=== PATIENT | female | born 1980 | race Two or more races ===

== ENCOUNTER 2016-10-12 15:38 | Emergency (ER) | payer BC ==
[2016-10-12] MEDS ORDERED: NORMAL SALINE 1000 ML 1,000 ML IV PRN (16:16)
[2016-10-12] MEDS ORDERED: ONDANSETRON HCL INJ/PF 4 MG/2 ML SDV IV ONE (16:16)
--- NOTE | 2016-10-12 16:18 | ER Document Report ---
ED Medical Screen (RME) - General Chief Complaint: Abdominal Pain Stated Complaint: ABDOMINAL & BACK PAIN Time Seen by Provider: 10/12/16 16:15 Mode of Arrival: Ambulatory Information source: Patient Notes: This is a 36-year-old female s/p Orbera balloon placement 4 days ago (Dr. Zurita ) who presents to the emergency room with persistent nausea, vomiting, pressure in the abdomen. The patient states she is unable to sleep at night because of the pressure. She states she has been miserable. She denies any fever, chills. TRAVEL OUTSIDE OF THE [place] IN LAST 30 DAYS: No - Related Data Allergies/Adverse Reactions: No Known Allergies Allergy (Unverified 10/12/16 15:45) Past Medical History - Social History Chew tobacco use (# tins/day): No Renal/ Medical History: Denies: Hx Peritoneal Dialysis Past Surgical History: Reports: Hx Tonsillectomy - Immunizations Hx Diphtheria, Pertussis, Tetanus Vaccination: No Physical Exam - Vital signs Vitals: Temp Pulse Resp BP Pulse Ox 97.4 F 85 14 110/65 98 10/12/16 15:42 10/12/16 15:42 10/12/16 15:42 10/12/16 15:42 10/12/16 15:42 Course - Vital Signs Vital signs: Temp Pulse Resp BP Pulse Ox 97.4 F 85 12 110/65 98 10/12/16 15:42 10/12/16 15:42 10/12/16 16:10 10/12/16 15:42 10/12/16 15:42
[2016-10-12 17:10] LABS: ABSOLUTE BASOPHILS # (AUTO) 0.1 10^3/uL (0.0-0.2); ABSOLUTE EOSINOPHILS # (AUTO) 0.3 10^3/uL (0.0-0.6); ABSOLUTE LYMPHOCYTES (AUTO) 2.2 10^3/uL (0.5-4.7); ABSOLUTE MONOCYTES (AUTO) 0.8 10^3/uL (0.1-1.4); ABSOLUTE NEUT (AUTO) 6.8 10^3/uL (1.7-8.2); BASOPHILS % (AUTO) 0.7 % (0-2); EOSINOPHILS % (AUTO) 3.4 % (0-6); HEMATOCRIT 33.6 % (36.0-47.0); HEMOGLOBIN 10.8 g/dL (12.0-15.5); HGB HCT DIFFERENCE -1.2; LYMPHOCYTES % (AUTO) 21.3 % (13-45); MEAN CORPUSCULAR HEMOGLOBIN 22.3 pg (27.0-33.4); MEAN CORPUSCULAR HGB CONC 32.2 g/dL (32.0-36.0); MEAN CORPUSCULAR VOLUME 69 fl (80-97); RED BLOOD COUNT 4.84 10^6/uL (3.72-5.28); RED CELL DISTRIBUTION WIDTH 17.9 % (11.5-14.0); SEGMENTED NEUTROPHILS % (AUTO) 66.6 % (42-78); WHITE BLOOD COUNT 10.2 10^3/uL (4.0-10.5)
[2016-10-12 17:31] LABS: ALANINE AMINOTRANSFERASE 67 U/L (9-52); ALBUMIN 4.8 g/dL (3.5-5.0); ALKALINE PHOSPHATASE 114 U/L (38-126); ANION GAP 14 (5-19); ASPARTATE AMINO TRANSFERASE 33 U/L (14-36); BILIRUBIN,DIRECT 0.3 mg/dL (0.0-0.4); BILIRUBIN,TOTAL 0.6 mg/dL (0.2-1.3); BLOOD UREA NITROGEN 12 mg/dL (7-20); CALCIUM 10.2 mg/dL (8.4-10.2); CARBON DIOXIDE 27 mmol/L (22-30); CHLORIDE 100 mmol/L (98-107); GLUCOSE 111 mg/dL (75-110); LIPASE 291.9 U/L (23-300); POTASSIUM 4.5 mmol/L (3.6-5.0); SODIUM 140.7 mmol/L (137-145); TOTAL PROTEIN 8.7 g/dL (6.3-8.2)
--- NOTE | 2016-10-12 17:35 | ER Document Report ---
ED GI/ - General Mode of Arrival: Ambulatory Information source: Patient TRAVEL OUTSIDE OF THE [place] IN LAST 30 DAYS: No <BLAISE GONZALEZ - Last Filed: 10/12/16 19:13> <CYRUSJOEYELSA - Last Filed: 10/12/16 20:15> - General Chief Complaint: Abdominal Pain Stated Complaint: ABDOMINAL & BACK PAIN Time Seen by Provider: 10/12/16 16:15 Notes: 36-year-old DM2, dpression, anxiety female who lives alone had a Orbera gastric balloon placed on Saturday by dr. doyle. She is c/o abdominal pressure on her bladder, kidneys, back when she is supine, and bilateral upper abdomen. No vomiting today since she has scapalomine patch and zofran. eating small piece of watermelon and some onion soup today. Normal BM yesterday. She states all the symptoms are due to the balloon procedure and she wants it out, but has not asked dr. doyle to remove it. (BLAISE GONZALEZ) - Related Data Allergies/Adverse Reactions: No Known Allergies Allergy (Unverified 10/12/16 15:45) Past Medical History - General Information source: Patient - Social History Smoking Status: Never Smoker Chew tobacco use (# tins/day): No Frequency of alcohol use: None Drug Abuse: None Lives with: Family Family History: Reviewed & Not Pertinent - Medical History Medical History: Negative Renal/ Medical History: Denies: Hx Peritoneal Dialysis Past Surgical History: Reports: Hx Tonsillectomy - Immunizations Hx Diphtheria, Pertussis, Tetanus Vaccination: No <BLAISE GONZALEZ - Last Filed: 10/12/16 19:13> Review of Systems - Review of Systems Constitutional: No symptoms reported EENT: No symptoms reported Cardiovascular: No symptoms reported Respiratory: No symptoms reported Gastrointestinal: See HPI Genitourinary: No symptoms reported Female Genitourinary: No symptoms reported Musculoskeletal: No symptoms reported Skin: No symptoms reported Hematologic/Lymphatic: No symptoms reported Neurological/Psychological: No symptoms reported <BLAISE GONZALEZ - Last Filed: 10/12/16 19:13> Physical Exam - Vital signs Interpretation: Normal - General General appearance: Alert, Anxious - HEENT Head: Normocephalic, Atraumatic Eyes: Normal Conjunctiva: Normal Pupils: PERRL Mucous membranes: Dry Pharynx: Normal Neck: Supple. No: Lymphadenopathy - Respiratory Respiratory status: No respiratory distress Chest status: Nontender Breath sounds: Normal Chest palpation: Normal - Cardiovascular Rhythm: Regular Heart sounds: Normal auscultation Murmur: No - Abdominal Inspection: Normal Distension: No distension Bowel sounds: Normal Tenderness: Tender - mild RUQ, suprapubic, and LUQ Organomegaly: No organomegaly - Back Back: Normal, Nontender. No: CVA tenderness - Extremities General upper extremity: Normal inspection, Nontender, Normal color, Normal ROM , Normal temperature General lower extremity: Normal inspection, Nontender, Normal color, Normal ROM , Normal temperature, Normal weight bearing. No: Clarita's sign - Neurological Neuro grossly intact: Yes Cognition: Normal Orientation: AAOx4 [place] Coma Scale Eye Opening: Spontaneous [place] Coma Scale Verbal: Oriented [place] Coma Scale Motor: Obeys Commands Krystal Coma Scale Total: 15 Speech: Normal Motor strength normal: LUE, RUE, LLE, RLE Sensory: Normal - Psychological Associated symptoms: Normal affect, Normal mood, Flat affect, Tearful - wants the orbera out - Skin Skin Temperature: Warm Skin Moisture: Dry Skin Color: Normal Skin irregularity: negative: Rash <BLAISE GONZALEZ - Last Filed: 10/12/16 19:13> <ELSA BRIDGES - Last Filed: 10/12/16 20:15> - Vital signs Vitals: Temp Pulse Resp BP Pulse Ox 97.4 F 85 14 110/65 98 10/12/16 15:42 10/12/16 15:42 10/12/16 15:42 10/12/16 15:42 10/12/16 15:42 - Notes Notes: looks dry (BLAISE GONZALEZ) Course - Laboratory Result Diagrams: 10/12/16 16:55 10/12/16 16:55 - Transfer of Care Care transferred to following provider: Nazario LUDWIG, pt aware but in CT at this time <BLAISE GONZALEZ - Last Filed: 10/12/16 19:13> - Laboratory Result Diagrams: 10/12/16 16:55 10/12/16 16:55 <ELSA BRIDGES - Last Filed: 10/12/16 20:15> - Re-evaluation Re-evalutation: 10/12/16 18:[address] Doyle after I spoke with her and he is willing to take the or bear out on Saturday. Consult dr. selby who rec. IV CT. (BLAISE GONZALEZ) 10/12/16 20:14 CAT scan imaging shows balloon in place with no acute abnormalities. Patient has been given hydration, she is actually relaxed at this time and calm. I discussed results showing no acute abnormalities. I called patient's ground support agent, Dr. Doyle, discussed results and symptoms, he states that he will is willing to take out the balloon tomorrow or Saturday on patient preference. Asked patient, she states she would like to wait until Saturday, informed Dr. Doyle and he states this will be the plan. (ELSA BRIDGES) - Vital Signs Vital signs: Temp Pulse Resp BP Pulse Ox 98.1 F 62 20 110/63 97 10/12/16 19:49 10/12/16 19:49 10/12/16 19:49 10/12/16 19:49 10/12/16 19:49 - Laboratory Laboratory results interpreted by me: 10/12/16 10/12/16 10/12/16 16:55 16:55 17:50 Hgb 10.8 L Hct 33.6 L MCV 69 L MCH 22.3 L RDW 17.9 H Plt Count 466 H Glucose 111 H ALT 67 H Total Protein 8.7 H Urine Blood LARGE H Urine Urobilinogen 2.0 H Ur Leukocyte Esterase MODERATE H Discharge <BLAISE GONZALEZ - Last Filed: 10/12/16 19:13> <ELSA BRIDGES - Last Filed: 10/12/16 20:15> - Discharge Clinical Impression: Post-op pain Condition: Stable Disposition: HOME, SELF-CARE Additional Instructions: No acute findings on imaging or evaluation today. I spoke with Dr. Doyle, the plan is to have this removed on Saturday. Please contact him to re-confirm this. Return to the ED for any concerning or worsening symptoms.
[2016-10-12 18:25] LABS: APPEARANCE,URINE CLOUDY; BILIRUBIN,URINE NEGATIVE (NEGATIVE); GLUCOSE, URINE NEGATIVE (NEGATIVE); KETONES,URINE NEGATIVE (NEGATIVE); LEUKOCYTE ESTERASE,URINE MODERATE (NEGATIVE); NITRITE,URINE NEGATIVE (NEGATIVE); PROTEIN,URINE NEGATIVE (NEGATIVE)
[2016-10-12] MEDS ORDERED: NORMAL SALINE 1000 ML 1,000 ML IV ONE (18:29)
--- NOTE | 2016-10-12 19:37 | RADIOLOGY REPORT (SQ) ---
EXAM DESCRIPTION: CT ABD/PELVIS WITH IV ONLY COMPLETED DATE/TIME: 10/12/2016 7:16 pm REASON FOR STUDY: abd pain post orbera placement COMPARISON: None. TECHNIQUE: CT scan of the abdomen and pelvis performed using helical scanning technique with dynamic intravenous contrast injection. No oral contrast. Images reviewed with lung, soft tissue, and bone windows. Reconstructed coronal and sagittal MPR images reviewed. Delayed images for evaluation of the urinary system also acquired. All images stored on PACS. All CT scanners at this facility use dose modulation, iterative reconstruction, and/or weight based d osing when appropriate to reduce radiation dose to as low as reasonably achievable (ALARA). [facility]: Dose Right [facility]: CareDose [facility]: Dose Right [facility]: Teradose 4D [facility]: [employer] CONTRAST TYPE AND DOSE: contrast/concentration: Isovue 370.00 mg/ml; Total Contrast Delivered: 98.0 ml; Total Saline Delivered: 40.1 ml RENAL FUNCTION: GFR > 60. RADIATION DOSE: Up-to-date CT equipment and radiation dose reduction techniques were employed. CTDIv ol: 13.6 - 17.4 mGy. DLP: 1587 mGy-cm.. LIMITATIONS: None. FINDINGS: LOWER CHEST: Small left pleural effusion and subsegmental atelectasis. LIVER: Normal size. Small posterior right lobe hemangioma. No dilated ducts. SPLEEN: Normal size. No focal lesions. PANCREAS: No masses. No significant calcifications. No adjacent inflammation or peripancreatic fluid collections. Pancreatic duct not dilated. GALLBLADDER: No identified stones by CT criteria. No inflammatory changes to suggest cholecystitis. ADRENAL GLANDS: No significant masses or asymmetry. RIGHT KIDNEY AND URETER: No solid masses. No significant calcifications. No hydronephrosis or hyd roureter. LEFT KIDNEY AND URETER: No solid masses. No significant calcifications. No hydronephrosis or hydr oureter. AORTA AND VESSELS: No aneurysm. No dissection. Renal arteries, SMA, celiac without stenosis. RETROPERITONEUM: No retroperitoneal adenopathy, hemorrhage or masses. BOWEL AND PERITONEAL CAVITY: Intra gastric balloon is present. No masses or inflammatory changes. No free fluid or peritoneal masses. APPENDIX: Normal. PELVIS: No mass. No free fluid. Normal bladder. ABDOMINAL WALL: No masses. No hernias. BONES: No significant or acute findings. OTHER: No other significant finding. IMPRESSION: Small left pleural effusion and subsegmental atelectasis. Intra gastric balloon is prese nt. NO ACUTE FINDING IN THE ABDOMEN OR PELVIS ON CT SCAN WITH IV CONTRAST. TECHNICAL DOCUMENTATION: JOB ID: [id number] Quality ID # [id number]: Final reports with documentation of one or more dose reduction techniques (e.g., Au tomated exposure control, adjustment of the mA and/or kV according to patient size, use of iterative reconstruction technique) 2010 [employer]- All Rights Reserved
[2016-10-12 19:53] VITALS: BP 110/63
== END 2016-10-12 20:20 | disposition home or self-care (01) ==
LOC: ER 15:38
DX: G89.18 Other acute postprocedural pain (principal); R10.811 Right upper quadrant abdominal tenderness; R10.812 Left upper quadrant abdominal tenderness; E11.9 Type 2 diabetes mellitus without complications; Z98.84 Bariatric surgery status
CPT/HCPCS: 99284; 96360; 96361; 36415; 87086; 83690; 84703; 85025; 80053; 81001; 74177; J7030

== ENCOUNTER → 2017-06-06 | Outpatient (CLI) | payer BC ==
--- NOTE | 2017-06-06 20:36 | RADIOLOGY REPORT (SQ) ---
EXAM DESCRIPTION: MRI ABDOMEN COMBO COMPLETED DATE/TIME: 06/06/2017 5:15 pm REASON FOR STUDY: ABN CT SCAN R93.5 ABN FINDINGS ON DX IMAGING OF [facility] COMPARISON: Outside CT and interpretation from 06/04/2017. TECHNIQUE: T1, T1 in and out of phase, T2 fat sat, T1 post gadolinium sequences with attention to th e liver. CONTRAST TYPE AND DOSE: 20 mL Prohance. RENAL FUNCTION: GFR > 60. LIMITATIONS: None. FINDINGS: LIVER: Hyperintense T2 lesion in the posterior right hepatic lobe measures 1.5 x 2.3 cm. On the initial arterial phase imaging, irregular nodular enhancement. This fills in rapidly, suspect ed to be a flash filling hemangioma. No worrisome liver lesions. SPLEEN: Minimally heterogeneous with slight focal hypoenhancing region in the upper pole. This is le ss than 2 cm and not as evident on delayed imaging. This may also represent a hemangioma, otherwise not further characterized. PANCREAS: No masses. No adjacent inflammation or peripancreatic fluid collections. Pancreatic duct no t dilated. GALLBLADDER: No masses. No stones. No gallbladder wall thickening or pericholecystic fluid. ADRENAL GLANDS: No significant masses or asymmetry. RIGHT KIDNEY AND URETER: No masses. No hydronephrosis. LEFT KIDNEY AND URETER: No masses. No hydronephrosis. AORTA AND VESSELS: No aneurysm. No dissection. Renal arteries, SMA, celiac without stenosis. RETROPERITONEUM: No retroperitoneal adenopathy, hemorrhage or masses. BOWEL: No visualized masses. No inflammation. No significant dilatation. ABDOMINAL WALL AND PERITONEUM: No hernias. No free fluid. BONES: No acute or significant findings. OTHER: No other significant finding. IMPRESSION: 1. Lesion in the liver is most consistent with a hemangioma. TECHNICAL DOCUMENTATION: JOB ID: [id number]- All Rights Reserved Reading location - IP/workstation name: [email or web address]
== END ==
LOC: RAD 15:24
PROVIDERS: ATTEND Internal Medicine Gastroenterology
DX: D18.09 Hemangioma of other sites (principal); R93.5 Abnormal findings on diagnostic imaging of other abdominal regions, including retroperitoneum
CPT/HCPCS: 74183; 82565

== ENCOUNTER → 2017-08-06 | Outpatient (CLI) | payer BC ==
--- NOTE | 2017-08-06 11:24 | ST Modified Barium Swallow ---
Recommendation - Recommendations Recommendations: Recommend follow up with java j2ee architect due to nature of patient's complaints. No oral or pharyngel deficits seen this day. Medical Diagnoses - Medical Diagnoses Medical Diagnosis Description & ICD-10 Code(s): dysphagia R13.10 Other Medical Diagnoses/Co-Morbidities: Patient reports reflux, migraines, sinus issues, and throat pain with cold items. ST Modified Barium Swallow - General Date: 08/06/17 Referring Physician: Dr. Lombardi Risks/Precautions: None Reason for Referral: dysphagia x2 yrs, 5 yrs cold beverage sensitivity w/ throat swelling/pain - History History obtained from: Patient -: Medical - Patient reports that for approximately 2 years she has had some choking sensation with foods and liquids. States that this happens more frequently with things such as salad with dressing. She also reports that for longer, she has had difficulty with cold items, states that these cause throat pain with her lasting into the next day. States that this also happends with yogurt, regardless of temperature. No recent pneumonias reported, and no injury/ surgery involving head or neck. Patient states that she is not . Medications: patienr reports advil, abuprofin. No reflux medications. Allergies: kiwi fruit - Functional Status Prior Functional Status: INDEPENDENT: feeding - independent Current Functional Limitations: feeding - Subjective Patient/caregiver goal(s): safe swallow Cognitive-Linguistic Function: WNL Speech Intelligibility: WNL Current Nutritional Means: PO Current PO diet: Regular Current symptoms: other - complaint of choking Pain: Patient reports, 1/5 - throat pain - Objective Assessment: Upright, Left Lateral - Food Trials Used Food trials used: Thin liquids, Pureed, Regular The patient: Was Able to Self Feed - Oral-Motor Skills Dentition: Full - Assessment Oral prep: Normal Labial closure: Adequate Leakage: None Mastication: Adequate Lingual Movement: Normal Oral stage: Normal for this Procedure - Pharyngeal Stage Initiation of Pharyngeal Stage Reflex: Normal Decreased laryngeal elevation: No Reduced Velopharyngeal Closure: no Reduced pressure generation: No reduced tongue-based retraction: No Pre-swallow pooling in valleculae: None Pre-Swallow pooling in pyriforms: None Reduced Thyro-Hyoid approximation: No Reduced epiglottic excursion: No Reduced pharyngeal peristalsis/contraction: No Post-swallow residulas vallecular: None Post-Swallow residuals in pyriforms: None - Fall Risk Assessment Medications/Conditions that increase fall risks include: Antidepressants, sedatives, anti-arrhythmic, diuretic, benzodiazipenes, neuroleptics. BP regulation problems, cardiac problems, balance or gait deficits, neurological problems. Is patient considered at risk for falls: no Fall Risk Actions Taken: No action needed - Behavioral Observations During evaluation process patient: was pleasant, was cooperative, able to answer questions, provided medical history - Treatment / Educational Needs: Treatment/Education Needs: Treatment consisted of patient education on the role of the Speech Pathologist. Patient's plan of care and golas were communicated as well as scheduling and attendance policies. Recommendations for initial home program were shared. Patient demonstrated understanding and verbalized agreement. - Impression/Summary Laryngeal Penetration: No Tracheal Aspiration: no Patient presents with: Normal swallow at eval Evaluation and Findings: Patient presents with normal oral and pharyngeal phase swallowing. Patient may benefit from java j2ee architect evaluation due to the nature of the patient's concerns and the lack of deficits seen on this study. - Recommendations Solid diet recommendations: Regular Liquid Diet Modification: Thin Pt/Family education and followup with MD: Yes Dysphagia therapy with BAFFLE MOUNTER: no Reflux Precautions: Taught to Patient Recommended techniques: Fully Upright During Meal, Small Bites and Sips Information, Precautions and Recommendations: Patient (Written), Patient (Verbal ) - Time Total Time: 25 - Plan of Care Strategies to optimize patient understanding include:: ongoing assessment of educational needs, implementation of educational strategies, and re-education. - - -: Thank you for the opportunity to work with this patient and his/her family. Should you have any questions about this patient's plan or progress, I can be reached at [phone]. Charge G Code? - - -: No
--- NOTE | 2017-08-06 11:41 | RADIOLOGY REPORT (SQ) ---
EXAM DESCRIPTION: TRUE SWALLOW COMPLETED DATE/TIME: 08/06/2017 9:41 am REASON FOR STUDY: DYSPHAGIA (R13.10) R13.10 DYSPHAGIA, UNSPECIFIED COMPARISON: None. TECHNIQUE: Videofluoroscopic swallowing examination was performed in conjunction with speech patholo gy. Videofluoroscopic imaging was obtained and reviewed and these are the findings: RADIATION DOSE: Fluoro time 1.22 minutes 1 images saved to PACS. LIMITATIONS: None FINDINGS: The patient was brought into the fluoro room and placed upright on a modified barium swall ow chair. The patient was then given multiple consistencies mixed with barium to swallow under live fluoroscopic video guidance. According to the Speech Pathologist there was no penetration or aspirat ion. Please refer to the speech pathology report for further details. IMPRESSION: NO EVIDENCE OF PENETRATION OR ASPIRATIONPLEASE SEE SPEECH PATHOLOGIST REPORT FOR OTHER F INDINGS AND RECOMMENDATIONS. COMMENT: None Quality ID [id number]: Final reports for procedures using fluoroscopy that document radiation exposure tanner drake, or exposure time and number of fluorographic images (if radiation exposure indices are not avail able) TECHNICAL DOCUMENTATION: JOB ID: [id number] [employer]- All Rights Reserved Reading location - IP/workstation name: [email or web address]
== END ==
LOC: RAD 08:50
PROVIDERS: ATTEND Otolaryngology
DX: R13.10 Dysphagia, unspecified (principal)
CPT/HCPCS: 74230

== ENCOUNTER 2017-12-30 12:11 | Emergency (ER) | payer OTHER, BC ==
[2017-12-30] MEDS ORDERED: TETRACAINE HCL 0.5% OPH SOLN 4 ML OS ONE (13:28)
--- NOTE | 2017-12-30 13:45 | ER Document Report ---
ED General - General Chief Complaint: Facial Swelling Stated Complaint: FACIAL SWELLING Time Seen by Provider: 12/30/17 12:24 Mode of Arrival: Ambulatory Information source: Patient Notes: 37-year-old female with a history of anxiety and sleep problems which involves mild sleep apnea, prediabetes, non-smoker, no alcohol, no drugs, is complaining of gradual onset over 5 minutes of left eyeball pressure and then pain and left upper eyelid swelling. She states some of the swelling is gone down but she has periorbital numbness which she describes is from midline laterally of the left eyebrow and lower lid lateral canthus. No recent upper respiratory or sinus infection, no itching, no history of this, no contacts, no change in her vision, no history of migraines. She also wants a urinalysis because she is having trouble urinating recently with no dysuria frequency or urgency. No fever or chills. She wants blood work drawn to check for her prediabetes. She wants me to check her eyeball pressures although there is no history of glaucoma. She had her eyes checked 1 year ago. She is okay seeing a mid-level provider when I presented to the room she just wants to know what is wrong. She wants a diagnosis. 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 This occurred while she was at work. Hx hemangioma of the liver 05/2017 MR. no longer as the gastric balloon. Hx. anemia, not taking her iron like she is supposed to. TRAVEL OUTSIDE OF THE [place] IN LAST 30 DAYS: No - Related Data Allergies/Adverse Reactions: kiwi Allergy (Verified 12/30/17 12:32) Past Medical History - General Information source: Patient - Social History Smoking Status: Never Smoker Chew tobacco use (# tins/day): No Frequency of alcohol use: None Drug Abuse: None Lives with: Parents Family History: Reviewed & Not Pertinent Patient has suicidal ideation: No Patient has homicidal ideation: No Renal/ Medical History: Denies: Hx Peritoneal Dialysis GI Medical History: Reports: Hx Gastroesophageal Reflux Disease Surgical Hx: Negative Past Surgical History: Reports: Hx Tonsillectomy - Immunizations Hx Diphtheria, Pertussis, Tetanus Vaccination: No Review of Systems - Review of Systems Constitutional: See HPI EENT: See HPI Cardiovascular: No symptoms reported Respiratory: No symptoms reported Gastrointestinal: No symptoms reported Genitourinary: No symptoms reported Female Genitourinary: No symptoms reported Musculoskeletal: No symptoms reported Skin: No symptoms reported Hematologic/Lymphatic: No symptoms reported Neurological/Psychological: No symptoms reported Physical Exam - Vital signs Vitals: Temp Pulse Resp BP Pulse Ox 98.5 F 77 16 137/76 H 98 12/30/17 12:15 12/30/17 12:15 12/30/17 12:15 12/30/17 12:15 12/30/17 12:15 Interpretation: Normal - General General appearance: Appears well, Alert - HEENT Head: Normocephalic, Atraumatic Eyes: Normal, Other - mild swelling without sty to left upper lid Conjunctiva: Normal Extraocular movements intact: Yes Pupils: PERRL Visual acuity- Right eye: 20/30 Visual acuity- Left eye: 20/30 Corrective lenses worn: No Pharynx: Normal Neck: Supple. No: Lymphadenopathy - Respiratory Respiratory status: No respiratory distress Chest status: Nontender Breath sounds: Normal Chest palpation: Normal - Cardiovascular Rhythm: Regular Heart sounds: Normal auscultation Murmur: No - Abdominal Inspection: Normal Distension: No distension Bowel sounds: Normal Tenderness: Nontender Organomegaly: No organomegaly - Back Back: Normal, Nontender - Extremities General upper extremity: Normal inspection, Nontender, Normal color, Normal ROM , Normal temperature General lower extremity: Normal inspection, Nontender, Normal color, Normal ROM , Normal temperature, Normal weight bearing. No: Clarita's sign - Neurological Neuro grossly intact: Yes Cognition: Normal Orientation: AAOx4 [place] Coma Scale Eye Opening: Spontaneous Krystal Coma Scale Verbal: Oriented [place] Coma Scale Motor: Obeys Commands Lewis Coma Scale Total: 15 Speech: Normal Motor strength normal: LUE, RUE, LLE, RLE Sensory: Normal - Psychological Associated symptoms: Normal affect, Normal mood - Skin Skin Temperature: Warm Skin Moisture: Dry Skin Color: Normal Skin irregularity: negative: Rash Course - Re-evaluation Re-evalutation: 12/30/17 16:55 Patient would not allow me to flip the eyelids even though the tetracaine drops were used, she also would not allow me to fluorescein the eyes to looke for uptake. therefore, Dr. Curry Ch who evaluated the patient as well and he said for her to use warm compresses to the eye and she can follow-up with ophthalmology or machine feeder raw stock tomorrow 01/01/18 19:07 - Vital Signs Vital signs: Temp Pulse Resp BP Pulse Ox 98.0 F 83 16 119/76 100 12/30/17 17:18 12/30/17 17:18 12/30/17 17:18 12/30/17 17:18 12/30/17 17:18 - Laboratory Result Diagrams: 12/30/17 14:14 12/30/17 14:14 Laboratory results interpreted by me: 12/30/17 12/30/17 14:14 14:14 Hgb 9.4 L Hct 30.0 L MCV 64 L MCH 20.1 L MCHC 31.2 L RDW 19.5 H Plt Count 479 H Glucose 115 H Discharge - Discharge Clinical Impression: left upper lid swelling, Facial paresthesia Anemia Qualifiers: Anemia type: iron deficiency Iron deficiency anemia type: unspecified iron deficiency Qualified Code(s): D50.9 - Iron deficiency anemia, unspecified Condition: Good Disposition: HOME, SELF-CARE Instructions: Acetaminophen, Anemia, Iron Deficiency ([facility]), Warm Packs ([facility]) Additional Instructions: Tylenol up to 4000 mg/day for discomfort Warm compress See the eye doctor tomorrow for recheck Return to the emergency room any concerns Copy of lab were given to you see your dehydration plant operator for follow up take your iron as she as instructed in the past Referrals: INO RUIZ MD [ACTIVE STAFF] - Follow up tomorrow
[2017-12-30 14:41] LABS: ABSOLUTE BASOPHILS # (AUTO) 0.1 10^3/uL (0.0-0.2); ABSOLUTE EOSINOPHILS # (AUTO) 0.3 10^3/uL (0.0-0.6); ABSOLUTE LYMPHOCYTES (AUTO) 2.8 10^3/uL (0.5-4.7); ABSOLUTE MONOCYTES (AUTO) 0.5 10^3/uL (0.1-1.4); ABSOLUTE NEUT (AUTO) 5.2 10^3/uL (1.7-8.2); BASOPHILS % (AUTO) 0.8 % (0-2); EOSINOPHILS % (AUTO) 3.7 % (0-6); HEMOGLOBIN 9.4 g/dL (12.0-15.5); LYMPHOCYTES % (AUTO) 31.7 % (13-45); MEAN CORPUSCULAR HEMOGLOBIN 20.1 pg (27.0-33.4); MEAN CORPUSCULAR HGB CONC 31.2 g/dL (32.0-36.0); MONOCYTES % (AUTO) 5.2 % (3-13); PLATELET COUNT 479 10^3/uL (150-450); RED BLOOD COUNT 4.65 10^6/uL (3.72-5.28); RED CELL DISTRIBUTION WIDTH 19.5 % (11.5-14.0); SEGMENTED NEUTROPHILS % (AUTO) 58.6 % (42-78); TOTAL CELLS COUNTED % (AUTO) 100 %
[2017-12-30 14:48] LABS: MEAN CORPUSCULAR VOLUME 64 fl (80-97)
[2017-12-30 14:49] LABS: APPEARANCE,URINE SLIGHTLY-CLOUDY; BILIRUBIN,URINE NEGATIVE (NEGATIVE); COLOR,URINE YELLOW; GLUCOSE, URINE NEGATIVE (NEGATIVE); KETONES,URINE NEGATIVE (NEGATIVE); LEUKOCYTE ESTERASE,URINE NEGATIVE (NEGATIVE); NITRITE,URINE NEGATIVE (NEGATIVE); PROTEIN,URINE NEGATIVE (NEGATIVE); URINE SPECIFIC GRAVITY 1.016; UROBILINOGEN,URINE NEGATIVE mg/dL (<2.0)
[2017-12-30 14:55] LABS: ALANINE AMINOTRANSFERASE 20 U/L (9-52); ALKALINE PHOSPHATASE 76 U/L (38-126); ANION GAP 9 (5-19); ASPARTATE AMINO TRANSFERASE 14 U/L (14-36); BILIRUBIN,TOTAL 0.3 mg/dL (0.2-1.3); BLOOD UREA NITROGEN 14 mg/dL (7-20); CALCIUM 9.3 mg/dL (8.4-10.2); CARBON DIOXIDE 27 mmol/L (22-30); CHLORIDE 103 mmol/L (98-107); GLUCOSE 115 mg/dL (75-110); POTASSIUM 3.9 mmol/L (3.6-5.0); TOTAL PROTEIN 7.1 g/dL (6.3-8.2)
[2017-12-30 15:14] LABS: HYPOCHROMASIA 2+; POLYCHROMASIA SLIGHT
[2017-12-30 15:15] LABS: ANISOCYTOSIS 2+; OVALOCYTES SLIGHT; PLATELET CLUMPS PRESENT; PLATELET COMMENT ADEQUATE; POIKILOCYTOSIS SLIGHT
--- NOTE | 2017-12-30 16:30 | ER Document Report ---
Doctor's Note Notes: I personally and independently obtained patient history and examined the patient in conjunction with the APC and agree with the assessment, treatment plan and disposition of the patient as recorded by the APC, and have reviewed the APC's note. HISTORY OF PRESENT ILLNESS: Patient is a 37-year-old female that presents to the emergency department for chief complaint of left eye swelling, that started this morning. ROS: Constitutional: Negative for fever. Cardiovascular: Negative for chest pain. Respiratory: Negative for shortness of breath. Gastrointestinal: Negative for vomiting or abdominal pain Musculoskeletal: Negative for arm, leg or back pain Skin: Negative for rash. Neurological: Negative for weakness or numbness. Unless otherwise stated in this report the patient's positive and negative responses for review of systems for constitutional, eyes, ENT, cardiovascular, respiratory, gastrointestinal, neurological, genitourinary, musculoskeletal, and integumentary systems and related systems to the presenting problem are either as stated in the HPI or were not pertinent or were negative for the symptoms and/or complaints related to the presenting medical problem. PHYSICAL EXAMINATION: Vital signs reviewed, nursing noted reviewed. GENERAL: Well-appearing, well-nourished and in no acute distress. HEAD: Atraumatic, normocephalic. EYES: Eyes appear normal, conjunctiva are normal. EOMI, PERRLA, there is very slight upper lid edema, difficult to discern when comparing to the right, no erythema, or tenderness to palpate ENT: nares patent, oropharynx clear without exudates. Moist mucous membranes. NECK: Normal range of motion, supple without lymphadenopathy LUNGS: Breath sounds clear to auscultation bilaterally and equal. No wheezes rales or rhonchi. HEART: Regular rate and rhythm without murmurs ABDOMEN: Soft, nontender, normoactive bowel sounds. No rebound, guarding, or rigidity. No masses appreciated. EXTREMITIES: Nontender, good range of motion, no pitting or edema. NEUROLOGICAL: No focal neurological deficits. Moves all extremities spontaneously Motor and sensory grossly intact on exam. PSYCH: Normal mood, normal affect. SKIN: Warm, Dry, normal turgor, no rashes or lesions noted on exposed MEDICAL DECISION MAKING: Patient seen and examined, appears well, she did have concerns about the swelling, she had a thorough exam performed by MARIA EUGENIA Johns, and I did not think she did any further workup at this time, and can follow-up with ophthalmology, patient was agreeable. Please review detail APC documentation. *Note is created using voice recognition software and may contain spelling, syntax or grammatical errors.
[2017-12-30 17:20] VITALS: BP 119/76
[2017-12-31 14:36] LABS: PATH REVIEW PATHOLOGIST REVIEWED
== END 2017-12-30 17:19 | disposition home or self-care (01) ==
LOC: ER 12:11
DX: R22.0 Localized swelling, mass and lump, head (principal); R20.2 Paresthesia of skin; D50.9 Iron deficiency anemia, unspecified
CPT/HCPCS: 99283; 36415; 85025; 81025; 80053; 81001; J3490